=== PATIENT | male | born 1935 | race Caucasian/White ===

== ENCOUNTER 2017-12-19 12:49 | Inpatient (IN) | payer OTHER, MEDICARE ==
[~2017-12-19] VITALS: Ht 185.4 cm; Wt 97.0 kg
[~2017-12-19 12:49] MED LIST: ASPI325T PO; DUETACT PO; ENAL20TA81 PO; GLYB1TAB51 PO; TAB-TAB PO; VITA400C70 PO; VITA500T10 PO; byetta SQ; flaxseed oil PO
[2017-12-19 12:58] VITALS: BP 161/78; PULSE 58; RESP 18; O2SAT 99
[2017-12-19] MEDS ORDERED: AMLO5TAB2 PO (13:10)
[2017-12-19] MEDS ORDERED: FURO40TA PO (13:10)
[2017-12-19] MEDS ORDERED: PLAV75TA29 PO (13:10)
[2017-12-19] MEDS ORDERED: LEVO200T4 PO (13:10)
[2017-12-19] MEDS ORDERED: NOVORP2 SQ (13:12)
[2017-12-19] MEDS ORDERED: NOVONP2 SQ (13:12)
[2017-12-19] MEDS ORDERED: SODIUM CHLORIDE 0.9% FLUSH 10 ML FLUSH IVF PRN (13:45)
--- NOTE | 2017-12-19 13:49 | PD ---
HPI Chief Complaint: Cardiac Complaint Time Seen by Provider: 13:24 Travel History International Travel<30 days: No Contact w/Intl Traveler<30days: No Traveled to known affect area: No History of Present Illness HPI 82 YO M with PMH of DMTII, A fib, AI,HLD, HTN, CKD, CVA presents to the ED for evaluation of abnormal result. Patient states that he was sent by Dr. Kee for pacemaker insertion. He denies CP, SOB, palpitations, dizziness, weakness. He endorses history of stroke two weeks ago with no residual deficits. Was treated at [facility]. Currently on Plavix and amlodipine. He saw Dr. 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 PFSH Past Medical History Arthritis: Yes Cancer: Yes (PROSTECTOMY) High Cholesterol: Yes Diabetes: Yes Patient Takes Glucophage: No Hypertension: Yes Thyroid Disease: Yes ?: Not Past Surgical History Abdominal Surgery: Yes (GALLBLADER REMOVED) Social History Alcohol Use: No Tobacco Use: No Substance Use: No Allergies-Medications (Allergen,Severity, Reaction): Coded Allergies: warfarin (Verified Allergy, Mild, 12/19/17) Reported Meds & Prescriptions Reported Meds & Active Scripts Active Reported Novolin R Inj (Insulin Human Regular) 1,000 Unit/10 Ml Vial 0 SQ BID Sliding Scale As Directed. Novolin N Inj (Insulin Human NPH) 1,000 Unit/10 Ml Vial 0 SQ BID Sliding Scale As Directed. Furosemide 40 Mg Tab 40 Mg PO DAILY Amlodipine (Amlodipine Besylate) 5 Mg Tab 5 Mg PO BID Levothyroxine (Levothyroxine Sodium) 200 Mcg Tab 200 Mcg PO DAILY Plavix (Clopidogrel Bisulfate) 75 Mg Tab 75 Mg PO DAILY [flaxseed oil] 1,000 Mg PO DAILY Vitamin C (Ascorbic Acid) 500 Mg Tab 500 Mg PO DAILY Vitamin E-400 (Vitamin E) 400 Units Cap 400 Units PO DAILY Aspirin 325 mg (Aspirin) 325 Mg Tab 325 Mg PO DAILY Multivitamin (Multivitamins) 1 Tab Tab 1 Tab PO DAILY Vasotec (Enalapril Maleate) 20 Mg Tab 20 Mg PO DAILY [[id number]] 2 Mg PO DAILY Diabeta (Glyburide) 5 Mg Tab 5 Mg PO TABS 2 AT HS [byetta] 5 Mcg SQ BIDAC Review of Systems Except as stated in HPI: all other systems reviewed are Neg Physical Exam Narrative GENERAL: Well-nourished, well-developed white male in no acute distress. SKIN: Focused skin assessment warm/dry. Well-healing surgical wound of the dorsum of the left hand without signs of infection. HEAD: Normocephalic. EYES: No scleral icterus. No injection or drainage. NECK: Supple, trachea midline. No JVD or lymphadenopathy. CARDIOVASCULAR: Regular rate and rhythm without murmurs, gallops, or rubs. RESPIRATORY: Breath sounds clear and equal bilaterally. No accessory muscle use. GASTROINTESTINAL: Abdomen soft, non-tender, nondistended. Active bowel sounds. MUSCULOSKELETAL: No cyanosis, or edema. Moves extremities spontaneously. BACK: Nontender without obvious deformity. No CVA tenderness. Data Data Last Documented VS Vital Signs Date Time Temp Pulse Resp B/P (MAP) Pulse Ox O2 Delivery O2 Flow Rate FiO2 12/19/17 12:58 58 18 161/78 (105) 99 Orders Orders Electrocardiogram (12/19/17 ) Complete Blood Count With Diff (12/19/17 13:40) Comprehensive Metabolic Panel (12/19/17 13:40) Prothrombin Time / Inr (Pt) (12/19/17 13:40) Act Partial Throm Time (Ptt) (12/19/17 13:40) Urinalysis - C+S If Indicated (12/19/17 13:40) Chest, Single Ap (12/19/17 13:40) Iv Access Insert/Monitor (12/19/17 13:40) Oximetry (12/19/17 13:40) Ecg Monitoring (12/19/17 13:40) Sodium Chloride 0.9% Flush (Ns Flush) (12/19/17 13:45) Consult Cardiology (12/19/17 ) Troponin I (12/19/17 13:58) Admit Order (Ed Use Only) (12/19/17 ) MDM Medical Decision Making Medical Screen Exam Complete: Yes Emergency Medical Condition: Yes Differential Diagnosis dysrhythmia versus symptomatic bradycardia versus ischemic heart disease versus other Narrative Course 82 YO M with PMH of DMTII, A fib, AI, HLD, HTN, CKD, CVA presents to the ED for evaluation of 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 Kee in the office. Patient is asymptomatic on presentation. Physical exam is reassuring. Per Dr. Kee's note, plans pacemaker insertion. Presurgical lab work ordered and pending. EKG rate 51, regular rhythm. RBBB. Left anterior fascicular block. No acute ST changes. Reviewed by Dr. Santos. Cardiology consult placed with Dr. Mullen. Patient understands that he is here for pacemaker insertion and is agreeable to the plan. Dr. Santos spoke with Dr. Vora who agrees to accept the patient to the medicine service. Please see medicine and cardiology notes for disposition. Jennifer Sam December 19, 2017 13:48
[2017-12-19] MEDS ORDERED: ACETAMINOPHEN 325 MG TAB PO PRN (14:15)
[2017-12-19] MEDS ORDERED: BISACODYL 10 MG SUPP RECTAL PRN (14:15)
[2017-12-19] MEDS ORDERED: MAGNESIUM HYDROXIDE SUSP 30 ML CUP PO PRN (14:15)
[2017-12-19] MEDS ORDERED: LACTULOSE SYRUP 20 GM/30 ML CUP PO PRN (14:15)
[2017-12-19] MEDS ORDERED: NALOXONE HCL 0.4 MG/ML AMP IV PUSH PRN (14:15)
[2017-12-19] MEDS ORDERED: SENNOSIDES 8.6 MG TAB PO PRN (14:15)
[2017-12-19] MEDS ORDERED: SODIUM CHLORIDE 0.9% FLUSH 10 ML FLUSH IV FLUSH PRN (14:15)
[2017-12-19 14:26] LABS: AUTOMATED NEUTROPHIL # 4.7 TH/MM3 (1.8-7.7); BASOPHIL # 0.1 TH/MM3 (0-0.2); BASOPHIL % 0.8 % (0.0-2.0); EOSINOPHIL # 0.3 TH/MM3 (0-0.4); EOSINOPHIL % 4.5 % (0.0-4.0); HEMATOCRIT 36.7 % (39.0-51.0); HEMOGLOBIN 13.7 GM/DL (13.0-17.0); LYMPH % 22.1 % (9.0-44.0); LYMPHOCYTE # 1.6 TH/MM3 (1.0-4.8); MEAN CELL VOLUME 89.4 FL (80.0-100.0); MEAN CORPUSCULAR HEMOGLOBIN 33.3 PG (27.0-34.0); MEAN PLATELET VOLUME 8.2 FL (7.0-11.0); MONO % 8.8 % (0.0-8.0); MONOCYTE # 0.7 TH/MM3 (0-0.9); NEUT % 63.8 % (16.0-70.0); PLATELET COUNT 350 TH/MM3 (150-450); RED BLOOD COUNT 4.11 MIL/MM3 (4.50-5.90); RED CELL DISTRIBUTION WIDTH 13.6 % (11.6-17.2); WHITE BLOOD COUNT 7.4 TH/MM3 (4.0-11.0)
[2017-12-19 14:27] LABS: MEAN CORPUSCULAR HGB CONC 37.2 % (32.0-36.0)
--- NOTE | 2017-12-19 14:29 | RADRPT ---
EXAM DATE/TIME: 12/19/2017 13:47 [place] COMPARISON: No previous studies available for comparison. INDICATIONS : Evaluate for pneumonia, pneumothorax, or communicable disease. Pre-op pacemaker. MEDICAL HISTORY : Diabetes mellitus type II. Hypertension A-fib. SURGICAL HISTORY : Prostatectomy. Cholecystectomy. ENCOUNTER: Initial ACUITY: 1 day PAIN SCORE: 0/10 LOCATION: Bilateral chest FINDINGS: Portable AP view of the chest demonstrates a normal-sized cardiac silhouette. EKG lines overlie the p atient. No effusion, consolidation, or pneumothorax is identified. The bones and soft tissues demonst rate no acute finding. There are degenerative changes at the glenohumeral joints and there is degener ative change throughout the thoracic spine. CONCLUSION: No acute cardiopulmonary abnormality is identified. David Heredia MD on December 19, 2017 at 14:26 Board Certified Radiologist. This report was verified electronically.
[2017-12-19 14:31] LABS: BILIRUBIN, URINE NEG (NEG); BLOOD, URINE NEG (NEG); GLUCOSE,URINE NEG (NEG); HYALINE CAST, URINE 9 /lpf (RARE); KETONE, URINE NEG (NEG); MUCUS URINE FEW /lpf (OCC); NITRITE,URINE NEG (NEG); URINE COLOR YELLOW (YELLW/STRAW); URINE LEUKOCYTE ESTERASE NEG (NEG)
[2017-12-19 14:34] LABS: PROTHROMBIN TIME - PATIENT 10.5 SEC (9.8-11.6)
[2017-12-19 14:45] LABS: ALBUMIN 3.4 GM/DL (3.4-5.0); ALT (GPT) 23 U/L (12-78); AST (GOT) 34 U/L (15-37); BICARBONATE 29.9 MEQ/L (21.0-32.0); CALCIUM 9.5 MG/DL (8.5-10.1); CHLORIDE 102 MEQ/L (98-107); CREATININE 2.61 MG/DL (0.60-1.30); GLOMERULAR FILTRATION RATE 24 ML/MIN (>89); GLUCOSE,RANDOM 168 MG/DL (74-106); SODIUM (NA) 139 MEQ/L (136-145)
--- NOTE | 2017-12-19 14:46 | PD ---
Data Data Last Documented VS Vital Signs Date Time Temp Pulse Resp B/P (MAP) Pulse Ox O2 Delivery O2 Flow Rate FiO2 12/19/17 12:58 58 18 161/78 (105) 99 Orders Orders Electrocardiogram (12/19/17 ) Complete Blood Count With Diff (12/19/17 13:40) Comprehensive Metabolic Panel (12/19/17 13:40) Prothrombin Time / Inr (Pt) (12/19/17 13:40) Act Partial Throm Time (Ptt) (12/19/17 13:40) Urinalysis - C+S If Indicated (12/19/17 13:40) Chest, Single Ap (12/19/17 13:40) Iv Access Insert/Monitor (12/19/17 13:40) Oximetry (12/19/17 13:40) Ecg Monitoring (12/19/17 13:40) Sodium Chloride 0.9% Flush (Ns Flush) (12/19/17 13:45) Consult Cardiology (12/19/17 ) Troponin I (12/19/17 13:58) Admit Order (Ed Use Only) (12/19/17 ) Labs Laboratory Tests Test 12/19/17 14:04 Urine Color YELLOW Urine Turbidity CLEAR Urine pH 6.0 Urine Specific [place] 1.011 Urine Protein 100 mg/dL Urine Glucose (UA) NEG mg/dL Urine Ketones NEG mg/dL Urine Occult Blood NEG Urine Nitrite NEG Urine Bilirubin NEG Urine Urobilinogen LESS THAN 2.0 MG/DL Urine Leukocyte Esterase NEG Urine Hyaline Casts 9 /lpf Urine Mucus FEW /lpf Microscopic Urinalysis Comment CATH-CULT NOT IND MDM Supervised Visit with KEHINDE: Yes Narrative Course The history, exam, and medical decision-making in the associated mid-level provider note were completed with my assistance. I reviewed and agree with the findings presented. I attest that I had a [id number] encounter with the patient on the same day, and personally performed and documented my assessment and findings in the medical record. 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 Referred in for pacemaker placement. He is minimally symptomatic if at all. Looks otherwise well. We will plan on admission, cardiac monitoring, cardiology consult. Hemal Santos MD December 19, 2017 14:46
[2017-12-19 14:50] LABS: ALKALINE PHOSPHATASE 99 U/L (45-117); BLOOD UREA NITROGEN 47 MG/DL (7-18); TOTAL BILIRUBIN ADULT 0.5 MG/DL (0.2-1.0); TOTAL PROTEIN 7.2 GM/DL (6.4-8.2)
[2017-12-19] MEDS ORDERED: ONDANSETRON HCL 4 MG/2 ML VIAL IVP PRN (15:00)
[2017-12-19 15:56] VITALS: BP 180/84; PULSE 55; RESP 20; TEMP 97.2; O2SAT 94
--- NOTE | 2017-12-19 16:58 | HHI.HP ---
[facility] Non-Staff Admission Diagnosis Bradycardia, trifascicular block Diagnoses: Chief Complaint: Sent from the [employer] office for pacemaker placement. Travel History International Travel<30 Days: No Contact w/Intl Traveler <30 Da: No Traveled to Known Affected Are: No History of Present Illness 82 Y/O male with a medical history significant for paroxysmal afib, recent MCA CVA, diabetes, CKD sent to the Hospital for pacemaker placement evaluation. The patient and his report he stopped taking Metoprolol a couple of weeks ago due to lightheadedness. He states his symptoms resolved since he stopped taking the medication. He was seen byt his [employer] today and was sent in for pacemaker insertion after the office rhythm was read as AV block with fasciculation. He currently denies any chest pain, SOB, or lightheadedness. He is not on any rate control or antiarrhythmic medications currently. Review of Systems Constitutional: COMPLAINS OF: Weight loss, DENIES: Fatigue Respiratory: DENIES: Shortness of breath Cardiovascular: DENIES: Chest pain, Palpitations, Syncope Except as stated in HPI: all other systems reviewed are Neg Past Family Social History Past Medical History Afib Recent CVA CKD HTN Diabetes Hypothyroidism Past Surgical History Appendectomy Cholecystectomy Bilateral hip replacement. Reported Medications Reported Meds & Active Scripts Active Reported Novolin R Inj (Insulin Human Regular) 1,000 Unit/10 Ml Vial 0 SQ BID Sliding Scale As Directed. Novolin N Inj (Insulin Human NPH) 1,000 Unit/10 Ml Vial 0 SQ BID Sliding Scale As Directed. Furosemide 40 Mg Tab 40 Mg PO DAILY Amlodipine (Amlodipine Besylate) 5 Mg Tab 5 Mg PO BID Levothyroxine (Levothyroxine Sodium) 200 Mcg Tab 200 Mcg PO DAILY Plavix (Clopidogrel Bisulfate) 75 Mg Tab 75 Mg PO DAILY [flaxseed oil] 1,000 Mg PO DAILY Vitamin C (Ascorbic Acid) 500 Mg Tab 500 Mg PO DAILY Vitamin E-400 (Vitamin E) 400 Units Cap 400 Units PO DAILY Aspirin 325 mg (Aspirin) 325 Mg Tab 325 Mg PO DAILY Multivitamin (Multivitamins) 1 Tab Tab 1 Tab PO DAILY Vasotec (Enalapril Maleate) 20 Mg Tab 20 Mg PO DAILY [[id number]] 2 Mg PO DAILY Diabeta (Glyburide) 5 Mg Tab 5 Mg PO TABS 2 AT HS [byetta] 5 Mcg SQ BIDAC Allergies: Coded Allergies: warfarin (Verified Allergy, Mild, 12/19/17) Family History Reviewed and is noncontributory. Social History No tobacco, alcohol Physical Exam Vital Signs Vital Signs Date Time Temp Pulse Resp B/P (MAP) Pulse Ox O2 Delivery O2 Flow Rate FiO2 12/19/17 12:58 58 18 161/78 (105) 99 Physical Exam GENERAL: This is a well-nourished, well-developed patient, in no apparent distress. SKIN: No rashes, ecchymoses or lesions. Cool and dry. HEAD: Atraumatic. Normocephalic. No temporal or scalp tenderness. EYES: Pupils equal round and reactive. Extraocular motions intact. No scleral icterus. No injection or drainage. ENT: Nose without bleeding, purulent drainage or septal hematoma. Throat without erythema, tonsillar hypertrophy or exudate. Uvula midline. Airway patent. NECK: Trachea midline. No JVD or lymphadenopathy. Supple, nontender, no meningeal signs. CARDIOVASCULAR: Rate in the 50's. Irregular rhythm without murmurs, gallops, or rubs. RESPIRATORY: Clear to auscultation. Breath sounds equal bilaterally. No wheezes , rales, or rhonchi. GASTROINTESTINAL: Abdomen soft, non-tender, nondistended. No hepato-splenomegaly , or palpable masses. No guarding. MUSCULOSKELETAL: Extremities without clubbing, cyanosis, or edema. No joint tenderness, effusion, or edema noted. No calf tenderness. Negative Homans sign bilaterally. NEUROLOGICAL: Awake and alert. Cranial nerves II through XII intact. Motor and sensory grossly within normal limits. Five out of 5 muscle strength in all muscle groups. Normal speech. Laboratory Laboratory Tests Test 12/19/17 14:04 12/19/17 14:14 Urine Color YELLOW Urine Turbidity CLEAR Urine pH 6.0 Urine Specific [place] 1.011 Urine Protein 100 Urine Glucose (UA) NEG Urine Ketones NEG Urine Occult Blood NEG Urine Nitrite NEG Urine Bilirubin NEG Urine Urobilinogen LESS THAN 2.0 Urine Leukocyte Esterase NEG Urine Hyaline Casts 9 Urine Mucus FEW Microscopic Urinalysis Comment CATH-CULT NOT IND White Blood Count 7.4 Red Blood Count 4.11 Hemoglobin 13.7 Hematocrit 36.7 Mean Corpuscular Volume 89.4 Mean Corpuscular Hemoglobin 33.3 Mean Corpuscular Hemoglobin Concent 37.2 Red Cell Distribution Width 13.6 Platelet Count 350 Mean Platelet Volume 8.2 Neutrophils (%) (Auto) 63.8 Lymphocytes (%) (Auto) 22.1 Monocytes (%) (Auto) 8.8 Eosinophils (%) (Auto) 4.5 Basophils (%) (Auto) 0.8 Neutrophils # (Auto) 4.7 Lymphocytes # (Auto) 1.6 Monocytes # (Auto) 0.7 Eosinophils # (Auto) 0.3 Basophils # (Auto) 0.1 CBC Comment AUTO DIFF Differential Comment AUTO DIFF CONFIRMED Platelet Estimate NORMAL Platelet Morphology Comment NORMAL Prothrombin Time 10.5 Prothromb Time International Ratio 1.0 Activated Partial Thromboplast Time 26.5 Blood Urea Nitrogen 47 Creatinine 2.61 Random Glucose 168 Total Protein 7.2 Albumin 3.4 Calcium Level 9.5 Alkaline Phosphatase 99 Aspartate Amino Transf (AST/SGOT) 34 Alanine Aminotransferase (ALT/SGPT) 23 Total Bilirubin 0.5 Sodium Level 139 Potassium Level 4.5 Chloride Level 102 Carbon Dioxide Level 29.9 Anion Gap 7 Estimat Glomerular Filtration Rate 24 Troponin I 0.07 Result Diagram: 12/19/17 1414 12/19/17 1414 Imaging Last Impressions Chest X-Ray 12/19/17 1340 Signed Impressions: Service Date/Time: Tuesday, December 19, 2017 13:47 - CONCLUSION: No acute cardiopulmonary abnormality is identified. MD Suzie Uribe VTE Risk Assessment Caprini VTE Risk Assessment: Mod/High Risk (score >= 2) Caprini Risk Assessment Model Point Value = 1 Point Value = 2 Point Value = 3 Point Value = 5 Age 41-60 Minor surgery BMI > 25 kg/m2 Swollen legs Varicose veins or History of unexplained or recurrent spontaneous Oral contraceptives or hormone replacement Sepsis (< 1 month) Serious lung disease, including pneumonia (< 1 month) Abnormal pulmonary function Acute myocardial infarction Congestive heart failure (< 1 month) History of inflammatory bowel disease Medical patient at bed rest Age 61-74 Arthroscopic surgery Major open surgery (> 45 min) Laparoscopic surgery (> 45 min) Malignancy Confined to bed (> 72 hours) Immobilizing plaster cast Central venous access Age >= 75 History of VTE Family history of VTE Factor V Leiden Prothrombin [id number] Lupus anticoagulant Anticardiolipin antibodies Elevated serum homocysteine Heparin-induced thrombocytopenia Other congenital or acquired thrombophilia Stroke (< 1 month) Elective arthroplasty Hip, pelvis, or leg fracture Acute spinal cord injury (< 1 month) Prophylaxis Regimen Total Risk Factor Score Risk Level Prophylaxis Regimen 0-1 Low Early ambulation 2 Moderate Order ONE of the following: *Sequential Compression Device (SCD) *Heparin 5000 units SQ BID 3-4 Higher Order ONE of the following medications: *Heparin 5000 units SQ TID *Enoxaparin/Lovenox 40 mg SQ daily (WT < 150 kg, CrCl > 30 mL/min) *Enoxaparin/Lovenox 30 mg SQ daily (WT < 150 kg, CrCl > 10-29 mL/min) *Enoxaparin/Lovenox 30 mg SQ BID (WT < 150 kg, CrCl > 30 mL/min) AND/OR *Sequential Compression Device (SCD) 5 or more Highest Order ONE of the following medications: *Heparin 5000 units SQ TID (Preferred with Epidurals) *Enoxaparin/Lovenox 40 mg SQ daily (WT < 150 kg, CrCl > 30 mL/min) *Enoxaparin/Lovenox 30 mg SQ daily (WT < 150 kg, CrCl > 10-29 mL/min) *Enoxaparin/Lovenox 30 mg SQ BID (WT < 150 kg, CrCl > 30 mL/min) AND *Sequential Compression Device (SCD) Assessment and Plan Problem List: (1) Bradycardia ICD Code: R00.1 - Bradycardia, unspecified Plan: ?AV block. Cardiology following Patient seen by Dr. Mullen. Dr. Richards consulted for EP studies to determine if he need pacemaker. (2) Diabetes ICD Code: E11.9 - Type 2 diabetes mellitus without complications Plan: SSI with accuchecks. (3) Paroxysmal A-fib ICD Code: I48.0 - Paroxysmal atrial fibrillation Plan: History of recent CVA. Need anticoagulation but patient is reluctant. Defer to Cardiology. (4) Hypertension ICD Code: I10 - Essential (primary) hypertension Plan: Continue Amlodipine and Lasix. (5) CKD (chronic kidney disease) ICD Code: N18.9 - Chronic kidney disease, unspecified Plan: Avoid nephrotoxins. Monitor (6) Hypothyroidism ICD Code: E03.9 - Hypothyroidism, unspecified Plan: Check TSH. Physician Certification 2 Midnight Certification Type: Admission for Inpatient Services Order for Inpatient Services The services are ordered in accordance with Medicare regulations or non- Medicare payer requirements, as applicable. In the case of services not specified as inpatient-only, they are appropriately provided as inpatient services in accordance with the 2-midnight benchmark. Estimated LOS (days): 2 days is the estimated time the patient will need to remain in the hospital, assuming treatment plan goals are met and no additional complications. Post-Hospital Plan: Home Problem Qualifiers (1) CKD (chronic kidney disease): Qualified Codes: N18.4 - Chronic kidney disease, stage 4 (severe) Baldo Vora MD December 19, 2017 16:58
--- NOTE | 2017-12-19 17:32 | MB ---
cc: Ramiro Mullen MD DATE: 12/19/2017 REASON FOR CONSULTATION: Pacemaker implantation. HISTORY OF PRESENT ILLNESS: The patient is an 82-year-old white male, followed in our office by Dr. Neil Kee, with a history of paroxysmal atrial arrhythmias, recent right middle cerebral artery stroke, chronic renal insufficiency, diabetes, prostate cancer, who was sent to the emergency department today from Dr. Neil Kee's office, as he was felt to have second-degree AV block in the setting of underlying right bundle branch block and left anterior fascicular block. The patient states when he was discharged recently from the hospital after his stroke, he had constant lightheadedness throughout the day. He stopped Lipitor and metformin about 3 days ago with complete resolution of the lightheadedness. He denies any recent syncope except on the day of his stroke. He also denies chest pain, shortness of breath, palpitations, paroxysmal nocturnal dyspnea, orthopnea. In the last year, he has lost close to 80 pounds with reduced calorie intake and some increase in exercise. PAST MEDICAL HISTORY: 1. Paroxysmal atrial arrhythmias. Review of his EKGs in the last few years show episodes of atrial tachycardia, possible atrial flutter, and atrial fibrillation. 2. Chronic renal insufficiency, stage IV. 3. 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 4. Moderate aortic insufficiency, most recently demonstrated by echo last month. 5. Diabetes. 6. Hypertension. 7. Hyperlipidemia. 8. Hypothyroidism. 9. Prostate cancer status post prostatectomy. PAST SURGICAL HISTORY: 1. Appendectomy. 2. Cataract surgery. 3. Cholecystectomy. 4. Bilateral hip replacements. 5. Prostatectomy. CARDIAC MEDICATIONS AT HOME: 1. Enalapril 20 mg daily. 2. Plavix 75 mg daily. 3. Amlodipine 5 mg b.i.d. 4. Furosemide 40 mg daily. ALLERGIES: WARFARIN. FAMILY HISTORY: Noncontributory. SOCIAL HISTORY: The patient quit smoking 50 years ago. He denies alcohol abuse. REVIEW OF SYSTEMS: As in history of present illness, otherwise negative or noncontributory. He also denies headache, abdominal pain, melena, dyspepsia, bright red blood per rectum. PHYSICAL EXAMINATION: VITAL SIGNS: His blood pressure 161/78 with a pulse of 58, respirations 18. GENERAL: He is a well-developed, well-nourished white male, in no acute distress. NECK: Jugular venous pressure is normal. Carotid pulses are 2+ bilaterally and without bruits. CHEST: Reveals clear lungs bates. CARDIAC: He has a bradycardic, regular rhythm without S3, S4, or murmur. ABDOMEN: He has a soft, nontender abdomen. Bowel sounds are present. There is no definite hepatosplenomegaly. EXTREMITIES: Reveals no clubbing, cyanosis or edema. LABORATORY AND DIAGNOSTIC DATA: EKG shows possible junctional rhythm, right bundle branch block, left anterior fascicular block. Laboratory data includes normal CBC. Potassium 4.5, BUN 47, creatinine 2.61. Troponin 0.07. INR 1.0. Chest x-ray shows no acute disease. IMPRESSION: An 82-year-old white male with a history of recent cerebrovascular accident, chronic renal insufficiency, paroxysmal atrial arrhythmias, diabetes, prostate cancer, admitted today with possible second-degree atrioventricular block in the setting of underlying right bundle branch block and left anterior fascicular block. His electrocardiogram from our office has been reviewed. It is not entirely clear that the patient has second-degree AV block. The P waves in the lead II rhythm strip do not consistently march out. They do possibly march out in lead V1. He does have a history of severe bradycardia necessitating discontinuation of metoprolol in the recent past. In any case, he has been asymptomatic except for some dizziness that completely resolved with discontinuation of metformin and Lipitor. In fact, he states he feels "great" today. RECOMMENDATIONS: 1. We will consult Dr. Geoff Richards for further electrophysiological assessment to see if the patient truly needs a permanent pacemaker. 2. I did also discuss again with the patient anticoagulation therapy in light of his recent stroke and history of atrial arrhythmias. He would like to continue on Plavix alone. MD PASCALE Cannon/TA , 05:13 PM , 05:32 PM LUIS
[2017-12-19 18:00] VITALS: PULSE 60
[2017-12-19] MEDS ORDERED: DEXTROSE 50% IN WATER 50 ML VIAL(D50) IV PUSH PRN (19:45)
[2017-12-19] MEDS ORDERED: GLUCAGON 1 MG/ML VIAL OTHER PRN (19:45)
[2017-12-19 20:00] VITALS: PULSE 45
[2017-12-19] MEDS ORDERED: INSULIN ASPART SUPPLEMENTAL SCALE SQ SCH (21:00)
[2017-12-19] MEDS: amLODIPine BESYLATE 5 MG TAB PO SCH (21:00)
[2017-12-19] MEDS: SODIUM CHLORIDE 0.9% FLUSH 10 ML FLUSH IV FLUSH SCH (21:00)
[2017-12-19 21:22] VITALS: BP 154/75; PULSE 52; RESP 16; TEMP 97.1; O2SAT 99
[2017-12-19 23:40] VITALS: BP 151/78; PULSE 53; RESP 16; TEMP 97.1; O2SAT 98
[2017-12-20] VITALS (12 sets, daily range): BP systolic 109–150; BP diastolic 60–81; PULSE 53–101; RESP 16–19; TEMP 97.1–98.4; O2SAT 96–100
[2017-12-20] MEDS ORDERED: LEVOTHYROXINE SODIUM 200 MCG TAB PO SCH (06:00)
[2017-12-20] MEDS: INSULIN NovoLIN REGULAR SUPPLEMENTAL SCALE SQ SCH ×4 (07:49→21:42)
[2017-12-20] MEDS ORDERED: SODIUM CHLOR 0.9% 1000 ML INJ 1,000 ML IV SCH (08:46)
--- NOTE | 2017-12-20 08:46 | PD.CARD.PN ---
Subjective Subjective Remarks Awake most of the night. Mild dyspnea intermittently. No dizziness, near syncope, palpitations. Infrequent left axillary pain "like pin stuck in me". Objective Medications Item Value Date Time Furosemide 40 mg 12/20/17 0900 (Lasix) DAILY/PO Amlodipine 5 mg 12/19/17 2100 Besylate BID/PO 12/19/17 2100 (Norvasc) Current Medications Medications (Trade) Dose Ordered Sig/Heath Route Start Time Stop Time Status Last Admin (NS Flush) 2 ml UNSCH PRN IVF 12/19/17 13:45 (NS Flush) 2 ml UNSCH PRN IV FLUSH 12/19/17 14:15 (NS Flush) 2 ml BID IV FLUSH 12/19/17 21:00 12/19/17 21:00 (Tylenol) 650 mg Q4H PRN PO 12/19/17 14:15 (Zofran Inj) 4 mg Q6H PRN IVP 12/19/17 15:00 (Narcan Inj) 0.4 mg UNSCH PRN IV PUSH 12/19/17 14:15 (Milk Of Magnesia Liq) 30 ml Q12H PRN PO 12/19/17 14:15 (Senokot) 17.2 mg Q12H PRN PO 12/19/17 14:15 (Dulcolax Supp) 10 mg DAILY PRN RECTAL 12/19/17 14:15 (Lactulose Liq) 30 ml DAILY PRN PO 12/19/17 14:15 (Norvasc) 5 mg BID PO 12/19/17 21:00 12/19/17 21:00 (Lasix) 40 mg DAILY PO 12/20/17 09:00 (Synthroid) 200 mcg DAILY@0600 PO 12/20/17 06:00 12/20/17 05:03 (D50w (Vial) Inj) 50 ml UNSCH PRN IV PUSH 12/19/17 19:45 (Glucagon Inj) 1 mg UNSCH PRN OTHER 12/19/17 19:45 (NovoLIN R SUPPLEMENTAL SCALE) 1 ACHS SLIDING SCALE SQ 12/20/17 08:00 Vital Signs / I&O Vital Signs Date Time Temp Pulse Resp B/P (MAP) Pulse Ox O2 Delivery O2 Flow Rate FiO2 12/20/17 04:00 64 12/20/17 03:20 97.3 66 16 109/60 (76) 96 12/20/17 00:00 53 12/19/17 23:40 97.1 53 16 151/78 (102) 98 12/19/17 21:22 97.1 52 16 154/75 (101) 99 12/19/17 20:00 45 12/19/17 18:00 60 12/19/17 15:56 97.2 55 20 180/84 (116) 94 12/19/17 12:58 58 18 161/78 (105) 99 I/O 12/19/17 12/19/17 12/19/17 12/20/17 12/20/17 12/20/17 07:00 15:00 23:00 07:00 15:00 23:00 Intake Total 330 ml Output Total 1150 ml Balance -820 ml Intake Oral 330 ml Output Urine Total 1150 ml # Voids 4 # Bowel Movements 2 Physical Exam GENERAL: Well developed, well nourished. No acute distress. HEENT: Jugular venous pressure is normal. CHEST: Lungs clear to auscultation bilaterally. Unlabored respiratory effort. CARDIAC: Bradycardic regular rhythm without S3, S4, or murmur. ABDOMEN: Soft, nontender, no hepatosplenomegaly. Bowel sounds present. EXTREMITIES: No clubbing, cyanosis, or edema. Laboratory Laboratory Tests Test 12/19/17 14:04 12/19/17 14:14 Urine Color YELLOW Urine Turbidity CLEAR Urine pH 6.0 Urine Specific Shannon 1.011 Urine Protein 100 mg/dL Urine Glucose (UA) NEG mg/dL Urine Ketones NEG mg/dL Urine Occult Blood NEG Urine Nitrite NEG Urine Bilirubin NEG Urine Urobilinogen LESS THAN 2.0 MG/DL Urine Leukocyte Esterase NEG Urine Hyaline Casts 9 /lpf Urine Mucus FEW /lpf Microscopic Urinalysis Comment CATH-CULT NOT IND White Blood Count 7.4 TH/MM3 Red Blood Count 4.11 MIL/MM3 Hemoglobin 13.7 GM/DL Hematocrit 36.7 % Mean Corpuscular Volume 89.4 FL Mean Corpuscular Hemoglobin 33.3 PG Mean Corpuscular Hemoglobin Concent 37.2 % Red Cell Distribution Width 13.6 % Platelet Count 350 TH/MM3 Mean Platelet Volume 8.2 FL Neutrophils (%) (Auto) 63.8 % Lymphocytes (%) (Auto) 22.1 % Monocytes (%) (Auto) 8.8 % Eosinophils (%) (Auto) 4.5 % Basophils (%) (Auto) 0.8 % Neutrophils # (Auto) 4.7 TH/MM3 Lymphocytes # (Auto) 1.6 TH/MM3 Monocytes # (Auto) 0.7 TH/MM3 Eosinophils # (Auto) 0.3 TH/MM3 Basophils # (Auto) 0.1 TH/MM3 CBC Comment AUTO DIFF Differential Comment AUTO DIFF CONFIRMED Platelet Estimate NORMAL Platelet Morphology Comment NORMAL Prothrombin Time 10.5 SEC Prothromb Time International Ratio 1.0 RATIO Activated Partial Thromboplast Time 26.5 SEC Blood Urea Nitrogen 47 MG/DL Creatinine 2.61 MG/DL Random Glucose 168 MG/DL Total Protein 7.2 GM/DL Albumin 3.4 GM/DL Calcium Level 9.5 MG/DL Alkaline Phosphatase 99 U/L Aspartate Amino Transf (AST/SGOT) 34 U/L Alanine Aminotransferase (ALT/SGPT) 23 U/L Total Bilirubin 0.5 MG/DL Sodium Level 139 MEQ/L Potassium Level 4.5 MEQ/L Chloride Level 102 MEQ/L Carbon Dioxide Level 29.9 MEQ/L Anion Gap 7 MEQ/L Estimat Glomerular Filtration Rate 24 ML/MIN Troponin I 0.07 NG/ML Imaging Last 24 hours Impressions Chest X-Ray 12/19/17 1340 Signed Impressions: Service Date/Time: Tuesday, December 19, 2017 13:47 - CONCLUSION: No acute cardiopulmonary abnormality is identified. David Heredia MD Assessment and Plan Problem List: (1) AV block ICD Codes: I44.30 - Unspecified atrioventricular block Status: Acute Plan: Overnight monitoring demonstrates more convincing evidence for 2nd degree AV block, possibly higher degree AV block. Clear episodes of AV dissociation. HR's dropping as low as 32 with patient awake. In light of these findings, and his underlying bifascicular block, recommend permanent pacemaker implant. REC pacer implant today 2:15 (2) Paroxysmal atrial fibrillation ICD Codes: I48.0 - Paroxysmal atrial fibrillation Status: Chronic Plan: Stable overnight. No evidence for atrial tachyarrhythmias. Unfortunately with his renal insufficiency, too risky to use apixaban, Xarelto or Pradaxa. He also has had severe nausea with warfarin. Will continue clopidogrel. Resume metoprolol after pacer placed. (3) Hypertension ICD Codes: I10 - Essential (primary) hypertension Status: Chronic Plan: Fluctuating BP's. Continue to monitor. Resume metoprolol after pacer placed. Code Status full code Discussed Condition With patient and Problem Qualifiers (1) Hypertension: Qualified Codes: I10 - Essential (primary) hypertension Ramiro Mullen MD December 20, 2017 08:46
[2017-12-20] MEDS ORDERED: POVIDONE IODINE 5% (ANTISEPSIS KIT) 4 APPLICATIONS TOPICAL ONE (09:00)
[2017-12-20] MEDS ORDERED: CHLORHEXIDINE GLUCONATE 2 % 1 PACK (2 CLOTHS) TOPICAL ONE (09:00)
[2017-12-20] MEDS ORDERED: MUPIROCIN 2% OINT 1 APPLIC/GM SYR EACH NARE ONE (09:00)
[2017-12-20] MEDS: SODIUM CHLORIDE 0.9% FLUSH 10 ML FLUSH IV FLUSH SCH ×2 (09:36→21:28)
[2017-12-20] MEDS: amLODIPine BESYLATE 5 MG TAB PO SCH ×2 (09:36→21:28)
[2017-12-20] MEDS: FUROSEMIDE 40 MG TAB PO SCH (09:36)
--- NOTE | 2017-12-20 09:38 | EKG ---
Date Performed: 12/19/2017 Time Performed: 13:09:05 PTAGE: 82 years EKG: The underlying rhythm is difficult to discern, suspect this is Sinus rhythm with marked first degree AV block Left anterior fascicular block Right bundle branch block NO PREVIOUS TRACING Clinical correlation is recommended. Cannot exclude possible junction al rhythm. DOCTOR: Yamil Paredes Interpretating Date/Time 12/20/2017 09:37:21
[2017-12-20] MEDS: CLOPIDOGREL 75 MG TAB PO SCH (09:59)
--- NOTE | 2017-12-20 11:10 | HHI.PR ---
Subjective Remarks Follow up bradycardia. Patient has no complaints at this time. Scheduled for pacemaker placement this afternoon. Denies chest pain, dyspnea. Objective Vitals Vital Signs Date Time Temp Pulse Resp B/P (MAP) Pulse Ox O2 Delivery O2 Flow Rate FiO2 12/20/17 08:12 97.1 84 19 118/73 (88) 96 12/20/17 04:00 64 12/20/17 03:20 97.3 66 16 109/60 (76) 96 12/20/17 00:00 53 12/19/17 23:40 97.1 53 16 151/78 (102) 98 12/19/17 21:22 97.1 52 16 154/75 (101) 99 12/19/17 20:00 45 12/19/17 18:00 60 12/19/17 15:56 97.2 55 20 180/84 (116) 94 12/19/17 12:58 58 18 161/78 (105) 99 I/O 12/19/17 12/19/17 12/19/17 12/20/17 12/20/17 12/20/17 07:00 15:00 23:00 07:00 15:00 23:00 Intake Total 330 ml Output Total 1150 ml Balance -820 ml Intake Oral 330 ml Output Urine Total 1150 ml # Voids 4 # Bowel Movements 2 Result Diagram: 12/19/17 1414 12/19/17 1414 Imaging Last Impressions Chest X-Ray 12/19/17 1340 Signed Impressions: Service Date/Time: Tuesday, December 19, 2017 13:47 - CONCLUSION: No acute cardiopulmonary abnormality is identified. David Heredia MD Objective Remarks General: Elderly male in no acute distress. Sitting up in a chair. Heart: Bradycardic. No murmur. Lungs: Clear to auscultation bilaterally. No wheezes, rales, or rhonchi. Breathing is nonlabored. Abdomen: Soft, nontender, nondistended. Extremities: No lower extremity edema. Psych: Alert and oriented. Neuro: Normal speech. No focal deficits noted. Procedures None Urinary Catheter: No Vascular Central Line Catheter: No A/P Problem List: (1) Bradycardia ICD Code: R00.1 - Bradycardia, unspecified (2) Diabetes ICD Code: E11.9 - Type 2 diabetes mellitus without complications (3) Paroxysmal A-fib ICD Code: I48.0 - Paroxysmal atrial fibrillation (4) Hypertension ICD Code: I10 - Essential (primary) hypertension Status: Chronic (5) CKD (chronic kidney disease) ICD Code: N18.9 - Chronic kidney disease, unspecified (6) Hypothyroidism ICD Code: E03.9 - Hypothyroidism, unspecified Assessment and Plan 1. Bradycardia: Appreciate cardiology recommendations. Scheduled for pacemaker placement today. 2. Diabetes mellitus: Monitor Accu-Cheks and cover with sliding scale insulin. 3. Paroxysmal atrial fibrillation: Patient needs anticoagulation, but is reluctant. Defer anticoagulation to cardiology. 4. Hypertension: Continue amlodipine, Lasix. 5. Chronic kidney disease stage III: Avoid nephrotoxins. Monitor creatinine. Uncertain what the patient's baseline creatinine is. 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 6. Hypothyroidism: Continue Synthroid. 7. DVT prophylaxis: SCDs, KIP linder. Problem Qualifiers (1) Hypertension: Qualified Codes: I10 - Essential (primary) hypertension (2) CKD (chronic kidney disease): Qualified Codes: N18.4 - Chronic kidney disease, stage 4 (severe) Osbaldo Roman MD December 20, 2017 11:10
[2017-12-20] MEDS ORDERED: LIDOCAINE HCL 1% PF 5 ML SYRINGE OTHER ONE (12:00)
[2017-12-20] MEDS ORDERED: PHENYLEPH/NS 1000 MCG/10 ML SYR IV ONE (12:00)
[2017-12-20] MEDS ORDERED: ePHEDrine/NS 25 MG/5 ML SYRINGE IV ONE (12:00)
[2017-12-20] MEDS ORDERED: PROPOFOL 200 MG/20 ML AMP IV ONE (12:00)
[2017-12-20] MEDS ORDERED: ceFAZolin INJ 1,000 MG in SODIUM CHLORIDE 0.9% INJ 250 ML IV ONE (13:15)
[2017-12-20] MEDS ORDERED: VANCOMYCIN INJ 1,000 MG in SODIUM CHLOR 0.9% 250 ML INJ 250 ML IV ONE (13:15)
[2017-12-20 13:18] LABS: CREATININE 2.67 MG/DL (0.60-1.30)
[2017-12-20] MEDS ORDERED: LIDOCAINE HCL 2% 20 ML VIAL ONE ×2 (14:12→14:35)
[2017-12-20] MEDS ORDERED: ceFAZolin INJ 1,000 MG VIAL ONE (14:13)
[2017-12-20] MEDS ORDERED: VANCOMYCIN HCL 1000 MG VIAL ONE (14:13)
--- NOTE | 2017-12-20 15:43 | MP ---
cc: Ramiro Mullen MD, Alan S MD DATE OF OPERATION: PROCEDURE PERFORMED: Dual chamber permanent pacemaker implantation via the left subclavian vein. INDICATIONS: High degree AV block, bifascicular block. OPERATIVE NOTE: The patient was brought to the operating suite in the fasting state after having signed informed consent. The left upper chest was prepped and draped as per policy and anesthetized with 1% lidocaine. A transverse incision was made inferior to the left clavicle and using blunt dissection, a subcutaneous pocket was formed down to the pectoralis fascia. After administration of 10 mL of contrast through a left arm peripheral IV, central venous access was obtained twice without difficulty via the left subclavian vein using modified Seldinger technique. Over the more lateral guidewire, a 7-Singaporean sheath was placed and through this sheath, a ventricular active fixation lead was introduced and its tip positioned in the right ventricular apex where good current of injury, stimulation threshold (0.7 volts) and sensitivity (5.7 millivolts) were demonstrated. This led was secured into place using 2-0 silk ties down to the pectoralis fascia. Over the remaining guidewire, another 7-Singaporean sheath was placed and through this sheath, an atrial active fixation lead was introduced and its tip positioned in the right atrial appendage where good current of injury, stimulation threshold (1.1 volts) and sensitivity (2.1 millivolts) were demonstrated. This lead was secured into place using 2-0 silk ties down to the pectoralis fascia. The atrial and ventricular electrograms show the patient to be intermittently in a second degree AV block, Type II. The leads were then connected to the pacemaker generator, which is a Biotronik Eluna device. The leads and the generator were placed into the subcutaneous pocket, which was closed using 3-0 Vicryl interrupted stitches in 3 layers to close the subcutaneous tissue and then 4-0 Monocryl running stitch to close the subcuticular tissue. Overlapping Steri-Strips and a pressure dressing were applied. There were no apparent immediate complications. A portable chest x-ray is pending at the time of this dictation. CONCLUSIONS: Successful dual chamber permanent pacemaker implantation via the left subclavian vein using an MRI-compatible Biotronik Eluna pacemaker generator. MD PASCALE Cannon/TA , 03:30 PM , 03:42 PM [facility]
--- NOTE | 2017-12-20 15:44 | CATHPROC ---
[facility] HIS Report Study Information Study Number Admission Scheduled Start Study Start [id number] Dec 19 2017 2:08PM 12/20/2017 Dec 20 2017 2:09PM [facility] Cardiac Pacer/ICD Admit Source Facility Department Emergency department [facility] - Ham Rolling Machine Operator Physician and Clinical Staff Initial Ramiro Wise [facility] Nursery Transplanter Laci Andrade,SAPPHIRE Other Anesthesia, MOBILE DEVICE DEVELOPER Recorder Roxana Valentino,GEEK SQUAD MANAGER TECH2 Scrub Chikis Sue,RT(R) Procedures Performed Procedure Location (Site) Vessel Name Lead Insertion Venogram Subclav. Vein (Lft Subclavian Vein Equipment Time Modeling Agency Manager Description Size Mfg Part Number Used/Scraped 14:58 BIOTRONIK LEAD, SOLIA 60 PRO MRI * [id number] Used 15:02 BIOTRONIK LEAD, SOLIA 60 53 PRO MRI * [id number] Used 15:11 BIOTRONIK PACEMAKER, ELUNA 8 DR-T DDDR [id number] Used [id number] 15:12 DAVOL INC MARLIN, HEMOSTAT 1 GRAM Used *[id number] 14:09 MEDLINE INDUSTRIES SUTURE, STRIP PLUS 1/2" * Used *[id number] 14:09 MEDLINE PACER ADHESIVE, MASTISOL 2/3CC 2/3CC 0523-48 Used 14:09 MEDLINE PACER CHAPMAN, LIMB * 2530 *[id number] Used [id number] 14:09 MEDLINE PACER PACK, PACER CUSTOM * Used *[id number] 14:09 MEDLINE PACER PEN, SKIN DUAL W/ RULER * Used *[id number] 15:01 Full Color Games PACER SAFE SHEATH, FR7, 13CM FR 7 [id number] Used 14:57 [employer] Games PACER SAFE SHEATH, FR7, 13CM FR 7 [id number] Used 14:49 Needle Sponge Count 2 22 Used 14:49 Needle Sponge Count 30 1 Used 14:49 Needle Sponge Count 4 4 Used 15:41 NYCOMED OMNIPAQUE, 350 MG, 50ML 50ML [id number] Used [id number] *[id number] SUTURE, 3-0 VICRYL [SH] ([id number]) SUTURE, 3-0 VICRYL [SH] ([id number]) SUTURE, 4-0 MONOCRYL [PS2] ([id number]) [id number] 14:09 [employer],WARM AIR CCL * Used *[id number] [facility] PAD, ELECTROSURGICAL 14:09 * [id number] *[id number] Used SURGICAL GROUNDING ORANGE 8904-7934 14:09 [employer]OLL [employer]ICAL HERMAN. / * Used *69999 Equipment Model, Serial, Lot Number and Expiration Data Description Model Number Serial Number Lot Number Expiration Date MARLIN HEMOSTAT 1 GRAM [id number] 09-17-2022 LEAD, SOLIA 60 PRO MRI [id number] 10-19-2019 LEAD, SOLIA 60 53 PRO MRI [id number] 10-19-2019 PACEMAKER, ELUNA 8 CHRIS [id number] 04-20-2019 History: Current Medications Medication Dosage/Unit Route Frequency Last Date/Time Taken NORVASC PLAVIX Insulin LASIX ASA VASOTEC Synthroid History: Risk Factors Hypertension Dyslipidemia Yes Yes Cerebrovascular Diabetes Diabetes Therapy Disease History: Arrhythmias Selection Items Atrial fibrillation History: Other Disease Selection Items Cancer Renal Failure/Insufficiency History: Other Current Smoker Method Quit No Cigarettes 50 Years Ago Labs Hgb (g/dl) Hct (%) WBC (l/cumm) Platelets (thousands) 11.60-17.00 35.00-51.00 4.00-11.00 150.00-450.00 13.7 36.7 7.4 350 Glucose (mg/dl) BUN (mg/dl) Creatinine (mg/dl) BUN:Creatinine (1:x) 74.00-106.00 7.00-18.00 0.50-1.30 10.00-20.00 182 45 2.6 17.3 Na (meq/l) K (meq/l) CO2 (mmol/L) Ca (mg/dl) 136.00-145.00 3.50-5.10 21.00-32.00 8.50-10.10 137 4 26 9 PT (sec) PTT (sec) INR (PTT:PT) 9.80-11.60 24.30-30.10 0.90-1.10 10.5 26.5 1 Troponin I (ng/ml) 0.02-0.05 0.07 Medication Medication Total Dose (Bolus/Oral) Medication Total Dosage/Unit 2% XYLOCAINE 50 mL Medications (Bolus/Oral) Medication Time Given Dosage/Unit Administered By Reason 2% XYLOCAINE 12/20/2017 2:51:55 PM 50 mL Ramiro Mullen 50 mL 2% XYLOCAINE given in lab by Ramiro Mullen via Subcutaneous to left upper chest. Ordered by Ramiro Patel. Medication (Drip) Medication Time Given Dosage/Unit Concentration/Unit Diluent (ml) Solutio n ANCEF 12/20/2017 2:45:51 PM 1 g 1 g ANCEF given in lab by Anesthesia, MOBILE DEVICE DEVELOPER in Right Antecubital via Peripheral IV. Ordered by Ramiro Mullen. IV Solutions 12/20/2017 2:09:48 PM 0 mL (IV) 500 NaCl .9 Patient arrived on IV Solutions in Right Antecubital via Peripheral IV. Pump/Drip Flow = 20 ml/hr usi ng NaCl .9. IV Solutions 12/20/2017 2:22:40 PM 0 mL (IV) 500 NaCl .9 Patient arrived on IV Solutions in Left Forearm via Peripheral IV. Pump/Drip Flow = 20 ml/hr using Na Cl .9. VANCOMYCIN DRIP 12/20/2017 2:46:33 PM 1 g 1 g VANCOMYCIN DRIP given in lab by Anesthesia, MOBILE DEVICE DEVELOPER in Right Antecubital via Peripheral IV. Ordered by Ramiro Mullen. Initial Case Assessment Cardiovascular HR NIBP Chest Pain 43 170/74 0 Neurological State Oriented to time-place- Alert Moves all extremities person Respiration - General SpO2 (%) 92 Final Case Assessment Cardiovascular HR Rhythm NIBP 63 paced 129/73 Neurological State Oriented to time-place- Drowsy Moves all extremities person Respiration - General SpO2 (%) 97 Chronological Log Time Study Chronological Log 14:07:40 Patient arrived via Bed. 14:07:44 Patient Name, D.O.B, / Armband Verified By R.N. 14:08:50 Pre-op and post- op instructions given; patient acknowledges understanding of instructions. 14:08:51 Verbal Stimulation=2 Physical Stimulation=2 Airway=2 Respiration=2 TOTAL=8. (0=absent, 1=li mited, 2=present) 14:09:38 Presedation assessment performed by [facility] Rolling Machine Operator RN. 14:09:41 Patient has been NPO for More than 6Hrs. 14:09:42 Skin Breakdown-generalized briusing noted. 14:09:43 Disposable Defibrillator Pads Placed On Patient. 14:09:44 Angel Prominences Protected 14:09:47 A # 20 IV was noted in the Antecubital (right). Grade = patent 14:09:48 Patient arrived on IV Solutions in Right Antecubital via Peripheral IV. Pump/Drip Flow = 20 ml/hr using NaCl .9. 14:09:49 History and physical on the chart or being dictated. 14:10:18 2% CHLORHEXIDINE GLUCONATE WASH AND NASAL SWIPE DONE PRIOR TO PROCEDURE. 14:11:20 History and physical on the chart or being dictated. 14:22:39 A # 20 IV was noted in the Forearm (left). Grade = patent 14:22:40 Patient arrived on IV Solutions in Left Forearm via Peripheral IV. Pump/Drip Flow = 20 ml/h r using NaCl .9. 14:26:08 HR=43 bpm, LYSG=792/74 mmhg, SpO2=92 % Assessment: Initial Case, HR=43 BPM, MPHG=056/74 mmhg, Chest Pain=0 14:26:30 Neurological: State=Alert, Ox3, ROSARIO Respiration: SpO2=92 % 14:26:36 Right Upper Chest Prepped and draped after a 3 min dry time. 14:27:10 Disposable Defibrillator Pads Placed On Patient. 14:27:12 Bovie ground pad applied to: right upper thigh 14:27:14 Anesthesia at bedside. Ricardo Multani CRNA Assumes care of patient. First Sponge And Instrument Count Done by Chikis Sue, RT(R). 14:28:18 Hypo's: 4, Sponges: 30, Bovie/scratch: 2 Sutures: 6, Blades: 3, Instruments: 26, Syveck Patches: 0 14:31:17 Dr. Chowdhury arrived for airway. 14:37:42 MD arrived. 14:40:00 LMA placed by anesthsia. 14:44:05 Reference ECG taken 14:45:51 1 g ANCEF given in lab by Anesthesia, MOBILE DEVICE DEVELOPER in Right Antecubital via Peripheral IV. Ordered by Ramiro Mullen. 1 g VANCOMYCIN DRIP given in lab by Anesthesia, MOBILE DEVICE DEVELOPER in Right Antecubital via Peripheral IV. Or dered by Sebas, 14:46:33 Ramiro. Time Out. Correct patient, procedure, procedure equipment, site and side verified with physicia n present. Time 14:49:21 concurred by MD, individual staff and MOBILE DEVICE DEVELOPER. Time Out #2 - Consents verified, patient in correct position, all results are labled and displa yed, safety precautions 14:49:27 taken, antibiotics administered. Time out concurred by MD, individual staff and MOBILE DEVICE DEVELOPER in procedu re 14:51:15 Case Start 14:51:55 50 mL 2% XYLOCAINE given in lab by Ramiro Mullen via Subcutaneous to left upper chest. Order ed by Ramiro Mullen. 14:52:30 Surgical Incision Made. 14:52:37 A pocket was created at the Lt. upper chest. 14:53:38 The Subclav. Vein (Lft was manually injected with 10 cc's of contrast. OMNIPAQUE, 350 MG, 5 0ML 50ML used. 14:53:57 Two raytec sponges put into the surgical pocket. 14:55:49 A SAFE SHEATH, FR7, 13CM FR 7 was advanced into the Subclav. Vein (Lft using the Percutaneo us technique. 14:57:55 A LEAD, SOLIA 60 PRO MRI * was inserted and positioned in the RV. 14:58:24 Lead placement verified under fluoroscopy 14:58:28 The RV lead impedance and threshold being tested. 14:59:25 The RV lead was sutured to the fascia. 14:59:45 HR=62 bpm, RQGS=873/59 mmhg, SpO2=97 % 15:04:15 A SAFE SHEATH, FR7, 13CM FR 7 was advanced into the Subclav. Vein (Lft using the Percutaneo us technique. 15:05:24 A LEAD, SOLIA 60 53 PRO MRI * was inserted and positioned in the RA. 15:05:49 Lead placement verified under fluoroscopy 15:05:51 The Atrial lead impedance and threshold is being tested. 15:07:18 The Atrial lead was sutured to the fascia. 15:10:16 Two Raytec sponges removed from the surgical pocket. 15:10:38 A PACEMAKER, ELUNA 8 DR-T DDDR was connected and placed in the pocket. 15:12:52 Marlin hemostasis powder applied to pocket. 15:15:11 Closing the pocket. Second Sponge And Instrument Count Done by Chikis Sue, RT(R). 15:18:18 Hypo's: 4, Sponges: 30, Bovie/scratch: 2 Sutures: ~SUTURE~, Blades: 3, Instruments: ~INSTRU~, Syveck Patches: 0 15:26:05 HR=63 bpm, QYFB=505/73 mmhg, SpO2=98 % 15::47 The pocket was closed. 15::51 Case End 15::53 Implant Procedure was performed. 15:27:00 A PPM Implant . (Dual) 15:28:15 Steri-strips and a sterile dressing applied to site. The Final Sponge And Instrument Count Done by Chikis Sue RT(R). 15::43 Hypo's: 4, Sponges: 30, Bovie/scratch: 2 Sutures: 6, Blades: 3, Instruments: 26, Syveck Patches: 0 15:37:27 PACU called. Spoke to Monique 15::53 A sling was placed on the affected arm. 15:38:00 Bedside Report will be given. Assessment: Final Case, HR=63 BPM, Rhythm=paced, LQGB=626/73 mmhg 15:38:12 Neurological: State=Drowsy, Ox3, ROSARIO Respiration: SpO2=97 % 15:38:16 No case complications noted. 15:38:17 Cine recording checked. 15:38:23 Implantable Device card placed in patient's chart. 15:38:26 Defibrillator and ground pads removed. Skin intact. 15:43:29 Patient moved to bed. 15:45:42 Patient transported to PACU. End Study - Contrast Media Used In Study Contrast Total Opened (mL) Total Used (mL) Total Wasted (mL) Omnipaque 10 10 0 End Study - Maximum Contrast Load Max Contrast Load (mL) 190.7 End Study - Radiation Exposure Fluoro Time (minutes) 2.4 End Study - Patient Disposition Complications Transferred To Interventional Outcome No Telemetry Bed successful
[2017-12-20] MEDS ORDERED: traMADol HCL 50 MG TAB PO PRN (15:45)
--- NOTE | 2017-12-20 16:51 | RADRPT ---
EXAM DATE/TIME: 12/20/2017 17:26 [place] COMPARISON: CHEST SINGLE AP, December 19, 2017, 13:47. INDICATIONS : Short of breath. MEDICAL HISTORY : Diabetes mellitus type II. Hypertension A-fib. SURGICAL HISTORY : Pacemaker. Prostatectomy. Cholecystectomy. ENCOUNTER: Initial ACUITY: 1 day PAIN SCORE: 0/10 LOCATION: Bilateral chest FINDINGS: Interval placement of dual-lead right atrium and ventricle. No significant pneumothorax. Cardiomedias tinal contours are within normal limits. Remainder of exam is unchanged. CONCLUSION: 1. Interval placement of dual-lead pacemaker with leads projecting over the right atrium and ventricl e. 2. No significant pneumothorax or interval change. Andrew Saleem MD on December 20, 2017 at 16:48 Board Certified Radiologist. This report was verified electronically.
[2017-12-20] MEDS ORDERED: METOPROLOL TARTRATE 25 MG TAB PO SCH (21:00)
[2017-12-20] MEDS ORDERED: AMIODARONE 200 MG TAB PO SCH (21:00)
[2017-12-21] VITALS (11 sets, daily range): BP systolic 115–138; BP diastolic 59–66; PULSE 59–62; RESP 16–18; TEMP 97.4–98.4; O2SAT 96–98
[2017-12-21] MEDS ORDERED: VANCOMYCIN INJ 1,000 MG in SODIUM CHLOR 0.9% 250 ML INJ 250 ML IV SCH (04:00)
[2017-12-21 06:45] LABS: AUTOMATED NEUTROPHIL # 6.1 TH/MM3 (1.8-7.7); BASOPHIL # 0.1 TH/MM3 (0-0.2); BASOPHIL % 1.2 % (0.0-2.0); EOSINOPHIL # 0.5 TH/MM3 (0-0.4); EOSINOPHIL % 5.6 % (0.0-4.0); HEMATOCRIT 38.2 % (39.0-51.0); HEMOGLOBIN 13.2 GM/DL (13.0-17.0); LYMPH % 12.1 % (9.0-44.0); MEAN CELL VOLUME 90.6 FL (80.0-100.0); MEAN CORPUSCULAR HEMOGLOBIN 31.4 PG (27.0-34.0); MEAN CORPUSCULAR HGB CONC 34.6 % (32.0-36.0); MEAN PLATELET VOLUME 8.3 FL (7.0-11.0); MONO % 8.4 % (0.0-8.0); MONOCYTE # 0.7 TH/MM3 (0-0.9); NEUT % 72.7 % (16.0-70.0); PLATELET COUNT 323 TH/MM3 (150-450); RED BLOOD COUNT 4.21 MIL/MM3 (4.50-5.90); RED CELL DISTRIBUTION WIDTH 13.5 % (11.6-17.2); WHITE BLOOD COUNT 8.4 TH/MM3 (4.0-11.0)
[2017-12-21 07:05] LABS: BICARBONATE 26.9 MEQ/L (21.0-32.0); CALCIUM 8.3 MG/DL (8.5-10.1); CREATININE 2.53 MG/DL (0.60-1.30)
--- NOTE | 2017-12-21 07:24 | PD.CARD.PN ---
Subjective Subjective Remarks Feels "great". Dyspnea resolved. No dizziness, near syncope, palpitations, chest pain. Objective Medications Item Value Date Time Metoprolol 12.5 mg 12/20/172099 Tartrate Q12HR/PO 12/20/172127 (Lopressor) Amiodarone HCl 400 mg 12/20/172099 (Cordarone) Q12HR/PO 12/20/172127 Clopidogrel 75 mg 12/20/1745 Bisulfate DAILY/PO 12/20/17958 (Plavix) Furosemide 40 mg 12/20/17 0900 (Lasix) DAILY/PO 12/20/1736 Amlodipine 5 mg 12/19/172099 Besylate BID/PO 12/20/172127 (Norvasc) Current Medications Medications (Trade) Dose Ordered Sig/Heath Route Start Time Stop Time Status Last Admin (NS Flush) 2 ml UNSCH PRN IVF 12/19/17 13:45 (NS Flush) 2 ml UNSCH PRN IV FLUSH 12/19/17 14:15 (NS Flush) 2 ml BID IV FLUSH 12/19/17 21:00 12/20/17 21:28 (Tylenol) 650 mg Q4H PRN PO 12/19/17 14:15 (Zofran Inj) 4 mg Q6H PRN IVP 12/19/17 15:00 (Narcan Inj) 0.4 mg UNSCH PRN IV PUSH 12/19/17 14:15 (Milk Of Magnesia Liq) 30 ml Q12H PRN PO 12/19/17 14:15 (Senokot) 17.2 mg Q12H PRN PO 12/19/17 14:15 (Dulcolax Supp) 10 mg DAILY PRN RECTAL 12/19/17 14:15 (Lactulose Liq) 30 ml DAILY PRN PO 12/19/17 14:15 (Norvasc) 5 mg BID PO 12/19/17 21:00 12/20/17 21:28 (Lasix) 40 mg DAILY PO 12/20/17 09:00 12/20/17 09:36 (Synthroid) 200 mcg DAILY@0600 PO 12/20/17 06:00 12/20/17 05:03 (D50w (Vial) Inj) 50 ml UNSCH PRN IV PUSH 12/19/17 19:45 (Glucagon Inj) 1 mg UNSCH PRN OTHER 12/19/17 19:45 (NovoLIN R SUPPLEMENTAL SCALE) 1 ACHS SLIDING SCALE SQ 12/20/17 08:00 12/20/17 21:42 Sodium Chloride 1,000 ml @ 150 mls/hr Q6H40M IV 12/20/17 08:46 12/20/17 10:45 (Plavix) 75 mg DAILY PO 12/20/17 09:45 12/20/17 09:59 (Lopressor) 12.5 mg Q12HR PO 12/20/17 21:00 12/20/17 21:28 (Cordarone) 400 mg Q12HR PO 12/20/17 21:00 12/20/17 21:28 (Ultram) 50 mg Q6HR PRN PO 12/20/17 15:45 Vital Signs / I&O Vital Signs Date Time Temp Pulse Resp B/P (MAP) Pulse Ox O2 Delivery O2 Flow Rate FiO2 12/21/17 06:00 60 12/21/17 05:00 60 12/21/17 04:00 60 12/21/17 04:00 98.2 60 18 138/66 (90) 97 12/21/17 03:00 60 12/21/17 02:00 60 12/21/17 01:00 60 12/21/17 00:00 98.4 60 18 123/63 (83) 98 12/21/17 00:00 59 12/20/17 23:00 66 12/20/17 21:00 76 12/20/17 20:00 98.4 85 18 150/80 (103) 98 12/20/17 20:00 101 12/20/17 20:00 74 12/20/17 19:00 74 12/20/17 18:08 68 12/20/17 17:58 97.5 69 18 140/81 (100) 100 12/20/17 17:15 97.4 62 16 145/78 (100) 100 Nasal Cannula 2 12/20/17 17:00 62 16 145/81 (102) 100 Nasal Cannula 2 12/20/17 16:45 64 16 139/78 (98) 100 Nasal Cannula 2 12/20/17 16:30 64 16 151/78 (102) 100 Nasal Cannula 2 12/20/17 16:15 66 16 144/80 (101) 100 Nasal Cannula 2 12/20/17 16:00 71 16 160/86 (110) 100 Nasal Cannula 2 12/20/17 15:54 97.2 74 16 152/78 (102) 100 Nasal Cannula 2 12/20/17 12:12 97.4 76 18 121/69 (86) 96 12/20/17 08:12 97.1 84 19 118/73 (88) 96 12/20/17 08:00 70 I/O 12/20/17 12/20/17 12/20/17 12/21/17 12/21/17 12/21/17 07:00 15:00 23:00 07:00 15:00 23:00 Intake Total 330 ml 710 ml 240 ml Output Total 1150 ml 500 ml 550 ml Balance -820 ml 210 ml -310 ml Intake Oral 330 ml 240 ml 240 ml IV Total 20 ml Other 450 ml Output Urine Total 1150 ml 500 ml 550 ml Other 0 ml # Voids 4 5 # Bowel Movements 2 1 Physical Exam GENERAL: Well developed, well nourished. No acute distress. HEENT: Jugular venous pressure is normal. CHEST: Lungs clear to auscultation bilaterally. Unlabored respiratory effort. Pacer site clean, dry, intact, no hematoma or tenderness. CARDIAC: Regular rate and rhythm without S3, S4, or murmur. ABDOMEN: Soft, nontender, no hepatosplenomegaly. Bowel sounds present. EXTREMITIES: No clubbing, cyanosis, or edema. Laboratory Laboratory Tests Test 12/20/17 12:04 12/21/17 05:47 Blood Urea Nitrogen 45 MG/DL 45 MG/DL Creatinine 2.67 MG/DL 2.53 MG/DL Random Glucose 182 MG/DL 115 MG/DL Calcium Level 9.0 MG/DL 8.3 MG/DL Sodium Level 137 MEQ/L 141 MEQ/L Potassium Level 4.0 MEQ/L 3.9 MEQ/L Chloride Level 101 MEQ/L 105 MEQ/L Carbon Dioxide Level 26.0 MEQ/L 26.9 MEQ/L Anion Gap 10 MEQ/L 9 MEQ/L Estimat Glomerular Filtration Rate 23 ML/MIN 25 ML/MIN White Blood Count 8.4 TH/MM3 Red Blood Count 4.21 MIL/MM3 Hemoglobin 13.2 GM/DL Hematocrit 38.2 % Mean Corpuscular Volume 90.6 FL Mean Corpuscular Hemoglobin 31.4 PG Mean Corpuscular Hemoglobin Concent 34.6 % Red Cell Distribution Width 13.5 % Platelet Count 323 TH/MM3 Mean Platelet Volume 8.3 FL Neutrophils (%) (Auto) 72.7 % Lymphocytes (%) (Auto) 12.1 % Monocytes (%) (Auto) 8.4 % Eosinophils (%) (Auto) 5.6 % Basophils (%) (Auto) 1.2 % Neutrophils # (Auto) 6.1 TH/MM3 Lymphocytes # (Auto) 1.0 TH/MM3 Monocytes # (Auto) 0.7 TH/MM3 Eosinophils # (Auto) 0.5 TH/MM3 Basophils # (Auto) 0.1 TH/MM3 CBC Comment DIFF FINAL Differential Comment Imaging Last 24 hours Impressions Chest X-Ray 12/20/17 1534 Signed Impressions: Service Date/Time: Wednesday, December 20, 2017 17:26 - CONCLUSION: 1. Interval placement of dual-lead pacemaker with leads projecting over the right atrium and ventricle. 2. No significant pneumothorax or interval change. Andrew Saleem MD Assessment and Plan Problem List: (1) AV block ICD Codes: I44.30 - Unspecified atrioventricular block Status: Acute Plan: Doing well s/p placement DDD pacemaker yesterday. Pacer site OK. Pacer re-interrogation shows good, stable pacing parameters. REC discharge today, 4-5 day f/u in our office for incision/pacer recheck; will discharge also on Levaquin 500 mg qd for 5 days (2) Paroxysmal atrial fibrillation ICD Codes: I48.0 - Paroxysmal atrial fibrillation Status: Chronic Plan: Stable overnight. No evidence for atrial tachyarrhythmias. Unfortunately with his renal insufficiency, too risky to use apixaban, Xarelto or Pradaxa. He also has had severe nausea with warfarin. Will continue clopidogrel. Also metoprolol resumed, increase dose to 25 mg bid. Also rec Amiodarone 200 mg qd to help maintain sinus rhythm (3) Hypertension ICD Codes: I10 - Essential (primary) hypertension Status: Chronic Plan: Fluctuating BP's. Hypertensive at times. To increase metoprolol dosing. Code Status full code Discussed Condition With patient and Problem Qualifiers (1) Hypertension: Qualified Codes: I10 - Essential (primary) hypertension Ramiro Mullen MD December 21, 2017 07:24
[2017-12-21] MEDS ORDERED: METO25TA3 PO (08:19)
[2017-12-21] MEDS ORDERED: LEVA250T14 PO (08:19)
[2017-12-21] MEDS ORDERED: TRAM50 PO (08:19)
[2017-12-21] MEDS ORDERED: AMIO200T PO (08:19)
--- NOTE | 2017-12-21 08:19 | HHI.DS ---
Discharge Summary Admission Date December 19, 2017 at 14:08 Discharge Date: December 21, 2017 Admitting Diagnosis Bradycardia, trifascicular block (1) Bradycardia ICD Code: R00.1 - Bradycardia, unspecified (2) Diabetes ICD Code: E11.9 - Type 2 diabetes mellitus without complications (3) Paroxysmal A-fib ICD Code: I48.0 - Paroxysmal atrial fibrillation (4) Hypertension ICD Code: I10 - Essential (primary) hypertension Status: Chronic (5) CKD (chronic kidney disease) ICD Code: N18.9 - Chronic kidney disease, unspecified (6) Hypothyroidism ICD Code: E03.9 - Hypothyroidism, unspecified Procedures 12/20/17 s/p PM by Dr Mullen cardiology : Successful dual chamber permanent pacemaker implantation via the left subclavian vein using an MRI-compatible [employer] Eluna pacemaker generator. Brief History - From Admission 82 Y/O male with a medical history significant for paroxysmal afib, recent MCA CVA, diabetes, CKD sent to the Hospital for pacemaker placement evaluation. The patient and his report he stopped taking Metoprolol a couple of weeks ago due to lightheadedness. He states his symptoms resolved since he stopped taking the medication. He was seen byt his Cardiovascular Tech today and was sent in for pacemaker insertion after the office rhythm was read as AV block with fasciculation. He currently denies any chest pain, SOB, or lightheadedness. He is not on any rate control or antiarrhythmic medications currently. CBC/BMP: 12/21/17 0547 12/21/17 0547 Significant Findings Laboratory Tests Test 12/19/17 14:04 12/19/17 14:14 12/20/17 12:04 12/21/17 05:47 Urine Protein 100 mg/dL (NEG-TRACE) Urine Mucus FEW /lpf (OCC) Red Blood Count 4.11 MIL/MM3 (4.50-5.90) 4.21 MIL/MM3 (4.50-5.90) Hematocrit 36.7 % (39.0-51.0) 38.2 % (39.0-51.0) Mean Corpuscular Hemoglobin Concent 37.2 % (32.0-36.0) Monocytes (%) (Auto) 8.8 % (0.0-8.0) 8.4 % (0.0-8.0) Eosinophils (%) (Auto) 4.5 % (0.0-4.0) 5.6 % (0.0-4.0) Blood Urea Nitrogen 47 MG/DL (7-18) 45 MG/DL (7-18) 45 MG/DL (7-18) Creatinine 2.61 MG/DL (0.60-1.30) 2.67 MG/DL (0.60-1.30) 2.53 MG/DL (0.60-1.30) Random Glucose 168 MG/DL (74-106) 182 MG/DL (74-106) 115 MG/DL (74-106) Estimat Glomerular Filtration Rate 24 ML/MIN (>89) 23 ML/MIN (>89) 25 ML/MIN (>89) Troponin I 0.07 NG/ML (0.02-0.05) Neutrophils (%) (Auto) 72.7 % (16.0-70.0) Eosinophils # (Auto) 0.5 TH/MM3 (0-0.4) Calcium Level 8.3 MG/DL (8.5-10.1) Imaging Last Impressions Chest X-Ray 12/20/17 1674 Signed Impressions: Service Date/Time: Wednesday, December 20, 2017 17:26 - CONCLUSION: 1. Interval placement of dual-lead pacemaker with leads projecting over the right atrium and ventricle. 2. No significant pneumothorax or interval change. Andrew Saleem MD PE at Discharge General: Elderly male in no acute distress. Sitting up in a chair. Heart: Bradycardic. No murmur. Lungs: Clear to auscultation bilaterally. No wheezes, rales, or rhonchi. Breathing is nonlabored. Abdomen: Soft, nontender, nondistended. Extremities: No lower extremity edema. Psych: Alert and oriented. Neuro: Normal speech. No focal deficits noted. Pt update on day of discharge The patient he does not have any shortness of breath or palpitations, no dizziness. Denies any chest pain. No nausea vomiting no diarrhea or constipation. He is able to eat. Does not have any fever or chills. Has some pain in his chest at the surgical site. Patient feels comfortable to go home. He was cleared by cardiology for discharge. Patient and at bedside with multiple questions all answered to the best of my ability. Hospital Course 82 Y/O male with a medical history significant for paroxysmal afib, recent MCA CVA, diabetes, CKD sent to the Hospital for pacemaker placement evaluation. The patient and his report he stopped taking Metoprolol a couple of weeks ago due to lightheadedness. He states his symptoms resolved since he stopped taking the medication. He was seen by his Cardiovascular Tech and was sent in for pacemaker insertion after the office rhythm was read as AV block with fasciculation. Patient had PM placed by Dr Mullen. Patient improved significantly. He is cleared by cardiology for discharge. He is discharged home in stable condition to follow-up with PCP and consultants as outpatient. Bradycardia: Appreciate cardiology recommendations. Scheduled for pacemaker placement today. Diabetes mellitus: Monitor Accu-Cheks and cover with sliding scale insulin. Paroxysmal atrial fibrillation: Patient needs anticoagulation, but is reluctant. Defer anticoagulation to cardiology. Hypertension: Continue amlodipine, Lasix. Chronic kidney disease stage III: Avoid nephrotoxins. Monitor creatinine. Uncertain what the patient's baseline creatinine is. 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 Hypothyroidism: Continue Synthroid. Pt Condition on Discharge: Stable Discharge Disposition: Discharge Home Discharge Time: > 30 minutes Discharge Instructions DIET: Follow Instructions for: Heart Healthy Diet Activities you can perform: Regular-No Restrictions Follow up Referrals: Cardiology - 3-5 Days with Ramiro Mullen MD PCP Follow-up - 2-3 Days New Medications: Amiodarone (Amiodarone) 200 Mg Tab 200 MG PO DAILY for Blood Pressure Management, #60 TAB Levofloxacin (Levaquin) 250 Mg Tablet 250 MG PO DAILY for infection, #5 TAB Metoprolol Tartrate (Metoprolol Tartrate) 25 Mg Tab 25 MG PO Q12HR for Blood Pressure Management, #60 TAB Tramadol (Ultram) 50 Mg Tab 50 MG PO Q6HR PRN for PAIN SCALE 4 TO 10, #14 TAB Continued Medications: Amlodipine (Amlodipine) 5 Mg Tab 5 MG PO BID for Blood Pressure Management, #30 TAB 0 Refills Ascorbic Acid (Vitamin C) 500 Mg Tab 500 MG PO DAILY, 0 Refills Aspirin (Aspirin 325 mg) 325 Mg Tab 325 MG PO DAILY, 0 Refills Clopidogrel (Plavix) 75 Mg Tab 75 MG PO DAILY for Blood Clot Prevention, #30 TAB 0 Refills Enalapril Maleate (Vasotec) 20 Mg Tab 20 MG PO DAILY, 0 Refills Furosemide (Furosemide) 40 Mg Tab 40 MG PO DAILY, #30 TAB 0 Refills Glyburide (Diabeta) 5 Mg Tab 5 MG PO tabs 2 at hs, 0 Refills Insulin Human NPH Inj (Novolin N Inj) 1,000 Unit/10 Ml Vial 0 SQ BID for Blood Sugar Management, #10 ML 0 Refills Sliding Scale As Directed. Insulin Human Regular Inj (Novolin R Inj) 1,000 Unit/10 Ml Vial 0 SQ BID for Blood Sugar Management, #10 ML 0 Refills Sliding Scale As Directed. Levothyroxine (Levothyroxine) 200 Mcg Tab 200 MCG PO DAILY for Thyroid, #30 TAB 0 Refills Multiple Vitamin (Multivitamin) 1 Tab Tab 1 TAB PO DAILY, 0 Refills Vitamin E (Vitamin E-400) 400 Units Cap 400 UNITS PO DAILY, 0 Refills [byetta] () 5 MCG SQ BIDAC, 0 Refills [[id number]] () 2 MG PO DAILY, 0 Refills [flaxseed oil] () 1000 MG PO DAILY, 0 Refills Chiquita Colmenares MD December 21, 2017 08:19
[2017-12-21] MEDS ORDERED: AMIODARONE 200 MG TAB PO SCH (09:00)
[2017-12-21] MEDS ORDERED: LEVOFLOXACIN 500 MG TAB PO ONE (09:00)
[2017-12-21] MEDS ORDERED: METOPROLOL TARTRATE 25 MG TAB PO SCH (09:00)
[2017-12-21] MEDS: FUROSEMIDE 40 MG TAB PO SCH (09:15)
[2017-12-21] MEDS: INSULIN NovoLIN REGULAR SUPPLEMENTAL SCALE SQ SCH (09:15)
[2017-12-21] MEDS: CLOPIDOGREL 75 MG TAB PO SCH (09:16)
[2017-12-21] MEDS: amLODIPine BESYLATE 5 MG TAB PO SCH (09:16)
[2017-12-21] MEDS: SODIUM CHLORIDE 0.9% FLUSH 10 ML FLUSH IV FLUSH SCH (09:18)
--- NOTE | 2017-12-21 14:48 | EKG ---
Date Performed: 12/21/2017 Time Performed: 05:19:26 PTAGE: 82 years EKG: AV sequential pacing Abnormal ECG PREVIOUS TRACING : 12/19/2017 13.09 Since the prior tracing, patient has apparently had a pacem francisco inserted, and it appears to be functioning or at least capturing in both chambers. DOCTOR: Evelyn Perez Interpretating Date/Time 12/21/2017 14:47:22
[2017-12-22] MEDS ORDERED: LEVOFLOXACIN 250 MG TAB PO SCH (09:00)
== END 2017-12-21 10:56 | disposition home or self-care (01) | DRG 243 ==
LOC: NEPE 12:49 → NEDA 14:08 → N04A 15:59 → HCIS 12-20 15:35
PROVIDERS: ADMIT Hospitalist; ATTEND Hospitalist
PROC: 0JH606Z Insertion of Pacemaker, Dual Chamber into Chest Subcutaneous Tissue and Fascia, Open Approach (ICD-10-PCS; principal; 2017-12-20)
PROC: 02HK3JZ Insertion of Pacemaker Lead into Right Ventricle, Percutaneous Approach (ICD-10-PCS; 2017-12-20)
PROC: 02H63JZ Insertion of Pacemaker Lead into Right Atrium, Percutaneous Approach (ICD-10-PCS; 2017-12-20)
DX: I48.0 Paroxysmal atrial fibrillation (principal); N18.4 Chronic kidney disease, stage 4 (severe); E11.22 Type 2 diabetes mellitus with diabetic chronic kidney disease; I45.2 Bifascicular block; I44.1 Atrioventricular block, second degree; I35.1 Nonrheumatic aortic (valve) insufficiency; R00.1 Bradycardia, unspecified; I12.9 Hypertensive chronic kidney disease with stage 1 through stage 4 chronic kidney disease, or unspecified chronic kidney disease; E78.5 Hyperlipidemia, unspecified; M19.90 Unspecified osteoarthritis, unspecified site; E03.9 Hypothyroidism, unspecified; Z96.643 Presence of artificial hip joint, bilateral; Z86.73 Personal history of transient ischemic attack (TIA), and cerebral infarction without residual deficits; Z85.46 Personal history of malignant neoplasm of prostate; Z79.02 Long term (current) use of antithrombotics/antiplatelets; Z87.891 Personal history of nicotine dependence
CPT/HCPCS: 33208; 71045; 80048; 80053; 81001; 82948; 84484; 85025; 85610; 85730; 93005; C1785; C1898; J0690; J2370; J3010; J3370; J7030